=== PATIENT | female | born 1995 | race Caucasian/White ===

== ENCOUNTER 2017-02-21 04:35 | Emergency (ER) | payer BC ==
--- NOTE | ~2017-02-21 | ER ---
PATIENT'S NAME: [facility] AGE: 21 Y [address] ROOM: [place] [address] LOCATION: [facility] ADMIT DATE: 02/21/2017 ER/Outpatient Report DISCHARGE DATE: 02/21/2017 FAMILY PHYSICIAN: Bipin Ruiz MD ATTENDING PHYSICIAN: Fausto Escalante Time of Arrival: Admission time and date documented on the medical record. Time of Evaluation: I saw the patient at 0450 hours. CHIEF COMPLAINT: Mid anterior chest pain. HISTORY OF PRESENT ILLNESS: The patient is a 21-year-old female, who was awoken from sleep around 0300 hours this morning. She had mid anterior chest pain, nonradiating. No shortness of breath. No diaphoresis. No nausea or vomiting. Lightheaded. No recent cold, coughs, flus, fever, chills, or sweats. No syncope. No headache or eyes, ears, nose, throat, neck, or spine pain. No abdominal pain. No diarrhea. No urinary symptoms. No joint or muscle swelling, redness, or pain. No skin eruptions or rash. No history of neuro changes, psych issues, or endocrine problems. HOME MEDICATIONS: See attached medication list. ALLERGIES: PENICILLIN. SOCIAL HISTORY: The patient smokes a pack of cigarettes a day and drinks alcohol several times a week. SIGNIFICANT PAST MEDICAL HISTORY: Tobacco abuse and depression. OPERATIONS: None. REVIEW OF SYSTEMS: All systems reviewed by me are negative with the exception of those discussed in the history of present illness. PHYSICAL EXAMINATION: VITAL SIGNS: Temperature 97.7, tympanic; pulse 86 and regular; respirations 16; blood pressure 142/90; O2 saturation on room air is 98%. Carol Coma PATIENT'S NAME: [facility] AGE: 21 Y [address] ROOM: [place] [address] LOCATION: [facility] ADMIT DATE: 02/21/2017 ER/Outpatient Report DISCHARGE DATE: 02/21/2017 FAMILY PHYSICIAN: Bipin Ruiz MD ATTENDING PHYSICIAN: Fausto Escalante Scale is 15. HEAD: Normocephalic. EYES, EARS, NOSE, AND THROAT: Clear. NECK: Negative. SPINE: Negative. LUNGS: Clear. Good air flow. No rales, rhonchi, or wheezes. HEART: Regular. Pulses are felt. Some tenderness over the anterior sternum to palpation. No deformity. ABDOMEN: Soft, nondistended, nontender. Good bowel tones. No organomegaly or abnormal mass palpable. EXTREMITIES: Intact. NEUROVASCULAR: Intact. SKIN: Clear. LABORATORY DATA AND X-RAY: EKG showed sinus rhythm. No acute ST elevation, ischemic change, or arrhythmia. Chest x-ray showed no acute infiltrate or changes. We will review x-ray with the radiologist. CMS was normal except for slightly low potassium at 3.6, slightly elevated glucose at 124, magnesium was 2.3, CPK was 124. [id number] cardiac enzymes were normal. Quantitative beta hCG was normal at less than 1.0. D-dimer was 0.24. White count is 13,800, 69 segs, 22 lymphs, 8 monos, 1 eo; hemoglobin is 15.4 with hematocrit 44.5; platelet count is 254,000. PTT was 31, protime was 9.6, and INR was 0.92. IMPRESSION: Mid anterior chest pain, etiology uncertain, most likely musculoskeletal, costochondritis. PLAN: The patient was given Toradol 60 mg IM in the emergency room and Decadron 10 mg IM in the emergency room. Dismissed home. Heating pad to sore area of the chest intermittently as needed. Toradol 10 mg 1 every 6 hours x12 doses. Follow up with personal physician as needed. Discussion ensued with the patient concerning my findings and recommendations, she understands. FASUTO ESCALANTE MD SDS/modl /[id number] d: 02/21/17808 t: 02/21/17 180, OUTPATIENT REPORT
[2017-02-21 05:14] LABS: BASOPHIL % 0.3 %; EOSINOPHIL # 0.1 K/uL (0.0-0.5); EOSINOPHIL % 0.6 %; HEMATOCRIT 44.5 % (33.0-46.0); HEMOGLOBIN 15.4 g/dL (11.0-15.0); IMMATURE GRANULOCYTE % 0.3 %; LYMPHOCYTE # 3.1 K/uL (0.8-4.0); LYMPHOCYTE % 22.2 %; MCH 31.4 pg (27.0-34.0); MCHC 34.6 gm/dL (32.0-36.5); MCV 90.6 fl (83.0-98.0); MONOCYTE # 1.1 K/uL (0.0-1.0); MONOCYTE % 8.1 %; MPV 9.6 fl (9.4-12.4); NEUTROPHIL # (ANC) 9.4 K/uL (1.8-7.8); NEUTROPHIL % 68.5 %; NRBC % 0 /100WBC (0-0.00); PLATELET COUNT 254 K/uL (150-450); RBC 4.91 M/uL (3.50-5.00); RDW-CV 12.8 % (11.9-14.6); WBC 13.8 K/uL (4.0-11.0)
[2017-02-21 05:25] LABS: INR - (THERAPEUTIC) 0.92 (0.92-1.07); PROTIME 9.6 SECONDS (9.8-11.4); PTT 31 SECONDS (25-32)
[2017-02-21 05:34] LABS: ALBUMIN 4.3 gm/dL (3.5-5.0); ALK PHOS 118 IU/L (33-138); ALT 31 IU/L (12-78); ANION GAP 10.6 (10.0-19.0); AST 21 IU/L (10-40); BLOOD UREA NITROGEN 8 mg/dL (6-24); CALCIUM 8.8 mg/dL (8.5-10.5); CHLORIDE 108 mMol/L (96-110); CO2 26 mMol/L (22-32); CPK 124 IU/L (21-215); CREATININE 0.9 mg/dL (0.5-1.1); ESTIMATED GFR (MDRD EQUATION) > 60; MAGNESIUM 2.3 mg/dL (1.8-2.6); POTASSIUM 3.6 mMol/L (3.7-5.1); SODIUM 141 mMol/L (135-145); TOTAL BILIRUBIN 0.3 mg/dL (0.0-1.5); TOTAL PROTEIN 7.2 g/dL (6.0-8.4)
== END 2017-02-21 06:34 | disposition disaster alternative care site (69) ==
LOC: GMED 04:35
PROVIDERS: Emergency Medicine
DX: M94.0 Chondrocostal junction syndrome [Tietze] (principal); F32.9 Major depressive disorder, single episode, unspecified; F17.210 Nicotine dependence, cigarettes, uncomplicated; Z79.899 Other long term (current) drug therapy; Z88.0 Allergy status to penicillin
CPT/HCPCS: J1100; J1885